=== PATIENT | female | born 1975 | race African-American/Black ===

== ENCOUNTER 2016-11-06 18:27 | Emergency (ER) | payer BC ==
[~2016-11-06] VITALS: Ht 149.9 cm; Wt 48.1 kg
[2016-11-06 18:46] LABS: BILIRUBIN,URINE NEGATIVE (NEG); GLUCOSE,URINE NEGATIVE (NEG); NITRITE,URINE NEGATIVE (NEG); PH,URINE 7.5; PROTEIN,URINE NEGATIVE (NEG-TRACE); UROBILINOGEN,URINE 0.2 mg/dL (0.2 mg/dL)
[2016-11-06 18:53] LABS: BACTERIA,URINE FEW /HPF (0-FEW); RBC,URINE TNTC /HPF (0-2)
[2016-11-06 18:54] LABS: SQUAMOUS EPITHELIAL CELL,UR FEW /LPF
[2016-11-06 19:04] LABS: BASO # 0.1 x10^3/uL (0.0-0.2); BASO % 1 % (0-3); EOS % 1 % (0-3); HEMATOCRIT 34.9 % (36.0-47.0); HEMOGLOBIN 11.5 g/dL (12.0-15.5); LYMPH # 1.8 x10^3/uL (1.0-4.8); LYMPH % 23 % (24-48); MEAN CORPUSCULAR HEMOGLOBIN 29 pg (25-35); MEAN CORPUSCULAR HGB CONC 33 g/dL (31-37); MEAN CORPUSCULAR VOLUME 88 fL (79-100); MONO % 7 % (0-9); NEUT % 68 % (31-73); PLATELET COUNT 274 x10^3/uL (140-400); RED BLOOD COUNT 3.96 x10^6/uL (3.50-5.40); RED CELL DISTRIBUTION WIDTH 13.3 % (11.5-14.5); WHITE BLOOD COUNT 7.8 x10^3/uL (4.0-11.0)
[2016-11-06 19:14] LABS: CALCIUM 9.5 mg/dL (8.5-10.1); CREATININE 0.7 mg/dL (0.6-1.0); GFR 112.1; POTASSIUM 3.6 mmol/L (3.5-5.1)
[2016-11-06 19:20] LABS: ALBUMIN 3.8 g/dL (3.4-5.0); TOTAL BILIRUBIN 0.4 mg/dL (0.2-1.0); TOTAL PROTEIN 7.6 g/dL (6.4-8.2)
--- NOTE | 2016-11-06 20:48 | RAD ---
Obstetrical ultrasound, 11/06/2016: HISTORY: Vaginal bleeding and cramping Transabdominal and transvaginal scans were obtained. The uterus contains a single gestational sac. The gestational sac contains a pole demonstrating a crown-rump length of 10 mm compatible with a gestational age of 7 weeks and 1 day. No heart motion is seen. This is abnormal with a pole of this size and suggests a nonviable . No subchorionic hemorrhage is evident. The ovaries are not specifically visualized. Several solid appearing adnexal masses or identified. The largest of these measures 10.2 cm. The technologist's impression was that these arose from outside of the uterus rather than from the uterus. IMPRESSION: 1. Early intrauterine of approximately 7 weeks gestational age with no identifiable heart motion, suggesting a nonviable . 2. Large adnexal masses raising the possibility of malignancy, possibly of ovarian origin. Exophytic uterine fibroids are less likely. Electronically signed by: Benja Galdmaez MD (11/06/2016 8:44 PM) [facility]
[2016-11-06] MEDS ORDERED: fentaNYL PF VIAL 100 MCG/2 ML VIAL IV PRN (21:00)
[2016-11-06 21:06] VITALS: BP 155/64
[2016-11-06] MEDS ORDERED: ONDA4TAB10 SL (21:34)
[2016-11-06] MEDS ORDERED: HYDR-971 PO (21:34)
--- NOTE | 2016-11-06 21:34 | PHYS DOC ---
Past Medical History Past Medical History: Depression Past Surgical History: No Surgical History Alcohol Use: None Drug Use: None Adult General Chief Complaint Chief Complaint: VAGINAL BLEEDING HPI HPI Patient is a 41 year old female who presents with vaginal bleeding in early . The patient is , LMP 09/02, at 9w3d by dates. She reports onset of cramping lower abdominal pain and vaginal spotting not requiring use of feminine pads, about one hour prior to arrival. Denies fevers or chills, nausea or vomiting, diarrhea or constipation, dysuria or hematuria or vaginal discharge. States she has seen an OB doctor and had ultrasound showing heart tones. She has history of previous miscarriage. Review of Systems Review of Systems Constitutional: Denies fever or chills HENT: Denies nasal congestion or sore throat Respiratory: Denies cough or shortness of breath Cardiovascular: Denies chest pain or edema GI: Reports abdominal pain, denies nausea, vomiting, or diarrhea : Denies dysuria or hematuria , reports vaginal bleeding Musculoskeletal: Denies back pain or joint pain Integument: Denies rash or skin lesions Neurologic: Denies headache, focal weakness or sensory changes Current Medications Current Medications Current Medications Medications (Trade) Dose Ordered Sig/Lloyd Start Time Stop Time Status Last Admin Dose Admin Fentanyl Citrate (Fentanyl 2ml Vial) 50 mcg PRN Q15MIN PRN 11/06/16 21:00 11/06/16 21:59 DC 11/06/16 20:52 50 MCG Ondansetron HCl (Zofran) 4 mg STK-MED ONCE 11/06/16 21:39 11/06/16 21:40 DC Allergies Allergies Allergies Coded Allergies Type Severity Reaction Last Updated Verified No Known Drug Allergies 11/06/16 No Physical Exam Physical Exam Constitutional: Well developed, well nourished, no acute distress, non-toxic appearance. HENT: Normocephalic, atraumatic, bilateral external ears normal, oropharynx moist, nose normal. Eyes: conjunctiva normal, no discharge. Neck: supple, no stridor. Cardiovascular: RRR, no murmurs, no edema. Lungs & Thorax: LCTAB, no wheezing, no respiratory distress. Abdomen: soft, nontender, nondistended. No masses or pulsatile masses, no rebound or guarding : normal appearing female external genitalia, normal appearing cervix with closed os, small amount of bright red blood in the vaginal vault, no CMT/ adnexal tenderness Skin: Warm, dry, no erythema, no rash. Back: No CVA tenderness. Extremities: No tenderness, no edema. Neurologic: Alert and oriented X 3, no focal deficits noted. Psychologic: Affect normal, judgement normal, mood normal. Current Patient Data Vital Signs Vital Signs Date Time Temp Pulse Resp B/P (MAP) Pulse Ox O2 Delivery O2 Flow Rate FiO2 11/06/16 21:06 98 155/64 (94) 11/06/16 20:52 Room Air 11/06/16 20:36 99 11/06/16 18:35 98.1 18 98.1 Lab Values Laboratory Tests Test 11/06/16 17:46 11/06/16 18:30 11/06/16 18:55 POC Urine HCG, Qualitative Hcg positive (Negative) Urine Collection Type Unknown Urine Color Yellow Urine Clarity Cloudy Urine pH 7.5 Urine Specific [place] 1.010 Urine Protein Negative mg/dL (NEG-TRACE) Urine Glucose (UA) Negative mg/dL (NEG) Urine Ketones (Stick) Negative mg/dL (NEG) Urine Blood Large (NEG) Urine Nitrite Negative (NEG) Urine Bilirubin Negative (NEG) Urine Urobilinogen Dipstick 0.2 mg/dL (0.2 mg/dL) Urine Leukocyte Esterase Small (NEG) Urine RBC Tntc /HPF (0-2) Urine WBC 5-10 /HPF (0-4) Urine Squamous Epithelial Cells Few /LPF Urine Bacteria Few /HPF (0-FEW) White Blood Count 7.8 x10^3/uL (4.0-11.0) Red Blood Count 3.96 x10^6/uL (3.50-5.40) Hemoglobin 11.5 g/dL (12.0-15.5) L Hematocrit 34.9 % (36.0-47.0) L Mean Corpuscular Volume 88 fL (79-100) Mean Corpuscular Hemoglobin 29 pg (25-35) Mean Corpuscular Hemoglobin Concent 33 g/dL (31-37) Red Cell Distribution Width 13.3 % (11.5-14.5) Platelet Count 274 x10^3/uL (140-400) Neutrophils (%) (Auto) 68 % (31-73) Lymphocytes (%) (Auto) 23 % (24-48) L Monocytes (%) (Auto) 7 % (0-9) Eosinophils (%) (Auto) 1 % (0-3) Basophils (%) (Auto) 1 % (0-3) Neutrophils # (Auto) 5.3 x10^3uL (1.8-7.7) Lymphocytes # (Auto) 1.8 x10^3/uL (1.0-4.8) Monocytes # (Auto) 0.5 x10^3/uL (0.0-1.1) Eosinophils # (Auto) 0.1 x10^3/uL (0.0-0.7) Basophils # (Auto) 0.1 x10^3/uL (0.0-0.2) Maternal Serum HCG Beta Subunit 3830 mIU/mL (0-5) H Sodium Level 140 mmol/L (136-145) Potassium Level 3.6 mmol/L (3.5-5.1) Chloride Level 104 mmol/L (98-107) Carbon Dioxide Level 27 mmol/L (21-32) Anion Gap 9 (6-14) Blood Urea Nitrogen 9 mg/dL (7-20) Creatinine 0.7 mg/dL (0.6-1.0) Estimated GFR (Cockcroft-Gault) 112.1 BUN/Creatinine Ratio 13 (6-20) Glucose Level 95 mg/dL (70-99) Calcium Level 9.5 mg/dL (8.5-10.1) Total Bilirubin 0.4 mg/dL (0.2-1.0) Aspartate Amino Transferase (AST) 12 U/L (15-37) L Alanine Aminotransferase (ALT) 12 U/L (14-59) L Alkaline Phosphatase 55 U/L (46-116) Total Protein 7.6 g/dL (6.4-8.2) Albumin 3.8 g/dL (3.4-5.0) Albumin/Globulin Ratio 1.0 (1.0-1.7) Laboratory Tests 11/06/16 18:55 Laboratory Tests 11/06/16 18:55 Microbiology 11/06/16 Wet Prep - Final, Complete EKG EKG [] Radiology/Procedures Radiology/Procedures PROCEDURE: OB < 14 WKS Obstetrical ultrasound, 11/06/2016: HISTORY: Vaginal bleeding and cramping Transabdominal and transvaginal scans were obtained. The uterus contains a single gestational sac. The gestational sac contains a pole demonstrating a crown-rump length of 10 mm compatible with a gestational age of 7 weeks and 1 day. No heart motion is seen. This is abnormal with a pole of this size and suggests a nonviable . No subchorionic hemorrhage is evident. The ovaries are not specifically visualized. Several solid appearing adnexal masses or identified. The largest of these measures 10.2 cm. The technologist's impression was that these arose from outside of the uterus rather than from the uterus. IMPRESSION: 1. Early intrauterine of approximately 7 weeks gestational age with no identifiable heart motion, suggesting a nonviable . 2. Large adnexal masses raising the possibility of malignancy, possibly of ovarian origin. Exophytic uterine fibroids are less likely. Electronically signed by: Benja Galdamez MD (11/06/2016 8:44 PM) [facility] DICTATED and SIGNED BY: BENJA GALDAMEZ MD DATE: 11/06/162032[] Course & Med Decision Making Course & Med Decision Making Pertinent Labs and Imaging studies reviewed. (See chart for details) The patient presents with vaginal bleeding in early . Vitals are stable , no evidence of vaginal hemorrhage. Gave pain medication and antiemetics. Ultrasound showed demise as well as adnexal mass. Discussed results with the patient. She had recently been told she had uterine fibroids. I discussed results with Dr. Flores, no need for further evaluation of mass during this visit. She can be seen in the clinic as an outpatient. Maybe luteal cyst but I did discuss with her the possibility of malignancy. Gave prescriptions for Zofran and [place], encourage use of ibuprofen with [place] for severe breakthrough pain. No drink alcohol or driving while taking [place]. Also provided Macrobid for UTI. Drink fluids, pelvic rest. Follow-up with Dr. Flores in the OB clinic in 2-3 days. Call in the morning to schedule an appointment. Return to the emergency department for high fever, severe pain, uncontrolled vomiting, heavy bleeding requiring greater than 1 pad per hour, any otherwise worsening condition. Discharged home in stable condition. [] Dragon Disclaimer Dragon Disclaimer This electronic medical record was generated, in whole or in part, using a voice recognition dictation system. Departure Departure Impression: Primary Impression: Missed Additional Impression: Pelvic mass Disposition: 01 HOME, SELF-CARE Condition: STABLE Referrals: NICK DSOUZA MD (PCP) JESSICA FLORES Jr, MD Patient Instructions: Miscarriage, [id number], Pelvic Mass Additional Instructions: You were seen in the emergency department today for vaginal bleeding in . The ultrasound showed fetus without heartbeat. You will likely experience more bleeding and cramping. Please rest, drink fluids, no strenuous exercise or sexual intercourse. Take ibuprofen 600 mg (3 tablets) every 8 hours , use Free[place] for severe pain, take Zofran for nausea. You also had large masses on your ovaries. This could be cysts related to . There is a possibility it could be cancer or something else. It is important to follow-up with an OB doctor. Please take the prescribed medication for urinary tract infection. Follow-up with Dr. Flores in the OB clinic in 2-3 days. Please call to make an appointment. Return to the emergency department for high fever, severe pain, uncontrolled vomiting, heavy bleeding requiring more than 1 pad per hour, any otherwise worsening condition. Scripts Nitrofurantoin Monohyd/M-Cryst (MACROBID 100 MG CAPSULE) 100 Mg Capsule 1 CAP PO BID, #14 CAP Prov: AURELIA ARCOS MD 11/06/16 Ondansetron (ZOFRAN ODT) 4 Mg Tab.rapdis 1 TAB SL Q8HRS, #10 TAB Prov: AURELIA ARCOS MD 11/06/16 Hydrocodone/Apap 5-325 (NORCO 5-325 TABLET) 1 Each Tablet 1 TAB PO PRN Q6HRS Y for PAIN, #10 TAB 0 Refills Prov: AURELIA ARCOS MD 11/06/16 Problem Qualifiers AURELIA ARCOS MD Nov 06, 2016 21:34
[2016-11-06] MEDS ORDERED: NITR100C62 PO (21:36)
[2016-11-06] MEDS ORDERED: ONDANSETRON PF 4 MG/2 ML VIAL. ONE (21:39)
[2016-11-06] MEDS ORDERED: ONDANSETRON PF 4 MG/2 ML VIAL. IV ONE (21:45)
== END 2016-11-06 21:45 | disposition home or self-care (01) ==
LOC: ER 18:27
DX: O02.1 Missed abortion (principal); O26.891 Other specified pregnancy related conditions, first trimester; R19.00 Intra-abdominal and pelvic swelling, mass and lump, unspecified site; O99.341 Other mental disorders complicating pregnancy, first trimester; F32.9 Major depressive disorder, single episode, unspecified; Z3A.09 9 weeks gestation of pregnancy
CPT/HCPCS: 36415; 76801; 80053; 81001; 81025; 84702; 85027; 86850; 86900; 86901; 87086; 87491; 87591; 96374; 96375; 99285; J2405; J3010; Q0111